=== PATIENT | female | born 1970 | race Caucasian/White ===

== ENCOUNTER 2022-01-02 07:07 | Outpatient (REF) | payer OTHER, SELFPAY ==
[2022-01-02 08:05] LABS: Anion Gap 11 (12-20); Blood Urea Nitrogen 15 mg/dL (9-16); C Reactive Protein 0.94 mg/dL (< or = 0.50); Carbon Dioxide 27 mmol/L (22-29); Chloride 105 mmol/L (96-108); Cholesterol 210 mg/dL; Estimated Glomerular Filt Rate > 60; Glucose Random 104 mg/dL (60-115); HDL Cholesterol 51 mg/dL; LDL Cholesterol Calculated 143 mg/dl; Potassium 4.3 mmol/L (3.3-5.1); Rheumatoid Factor < 15.0 IU/mL (<15.0); Sodium 139 mmol/L (135-145); Triglycerides 83 mg/dL
[2022-01-02 08:10] LABS: Reflex LDLD? No
[2022-01-02 08:31] LABS: Free T4 (Free Thyroxine) 1.13 ng/dL (0.71-1.85); Insulin 13 uU/mL (2-29); Thyroid Stimulating Hormone 2.13 uIU/mL (0.32-4.0)
[2022-01-02 08:33] LABS: Erythrocyte Sedimentation Rate 17 MM/HR (0-20)
[2022-01-04 13:53] LABS: Anti Nuclear Antibody Screen NEGATIVE (NEGATIVE)
== END 2022-01-02 07:08 | disposition home or self-care (01) ==
LOC: HO.LAB 07:07
PROVIDERS: PCP Internal Medicine; Visit Provider Internal Medicine
DX: E66.01 Morbid (severe) obesity due to excess calories (principal); M25.60 Stiffness of unspecified joint, not elsewhere classified
CPT/HCPCS: 36415; 80048; 80061; 83525; 84439; 84443; 85652; 86038; 86039; 86140; 86431

== ENCOUNTER 2023-01-26 06:25 | Outpatient (REF) | payer OTHER, SELFPAY ==
[2023-01-26 06:38] LABS: MANUAL DIFF FLAG NO
[2023-01-26 07:26] LABS: Basophils Absolute Auto 0.1 X10*3/uL (0.0-0.2); Basophils Percent Auto 1.1 % (0-2); Eosinophils Absolute Auto 0.3 X10*3/uL (0.0-0.4); Hematocrit 43.4 % (37.0-47.0); Hemoglobin 14.1 g/dl (12.0-16.0); Imm Gran Abs Auto 0.01 X10*3/uL (0.00-0.03); Imm Gran Pct Auto 0.2 % (0.0-0.4); Lymphocytes Absolute Auto 1.9 X10*3/uL (1.2-4.9); Lymphocytes Percent Auto 34.3 % (20-40); Mean Corpuscular HGB Conc 32.5 g/dl (31.0-35.0); Mean Corpuscular Hemoglobin 29.9 pg (27.0-33.0); Mean Corpuscular Volume 92.1 fL (80.0-98.0); Monocytes Absolute Auto 0.4 X10*3/uL (0.1-1.2); Neutrophils Absolute Auto 2.9 x10*3/uL (2.0-8.3); Neutrophils Percent Auto 51.4 % (45-73); Platelet Count 179 X10*3/uL (160-400); Red Blood Count 4.71 X10*6/uL (4.20-5.50); Red Cell Distribution Width 13.6 % (11.0-16.0); White Blood Count 5.5 X10*3/uL (4.8-10.8)
[2023-01-26 08:11] LABS: Alanine Aminotransferase 26 U/L (0-31); Alkaline Phosphatase 98 U/L (39-117); Anion Gap 13 (12-20); Aspartate Amino Transferase 23 U/L (5-31); Bilirubin Total 0.8 mg/dL (0.0-1.0); Blood Urea Nitrogen 22 mg/dL (9-16); Calcium 9.1 mg/dL (8.4-10.2); Carbon Dioxide 29 mmol/L (22-29); Chloride 107 mmol/L (96-108); Cholesterol 208 mg/dL; Estimated Glomerular Filt Rate > 60; Glucose Random 101 mg/dL (60-115); HDL Cholesterol 57 mg/dL; LDL Cholesterol Calculated 132 mg/dl; Potassium 4.5 mmol/L (3.3-5.1); Sodium 144 mmol/L (135-145); Triglycerides 97 mg/dL
[2023-01-26 08:13] LABS: ~Hepatitis C Antibody Reactive (Nonreactive)
== END 2023-01-26 06:26 | disposition home or self-care (01) ==
LOC: HO.LAB 06:25
PROVIDERS: PCP Nurse Practitioner Primary Care; Visit Provider Nurse Practitioner Primary Care
DX: E66.01 Morbid (severe) obesity due to excess calories (principal); Z11.59 Encounter for screening for other viral diseases
CPT/HCPCS: 36415; 80053; 80061; 85025; 86803

== ENCOUNTER 2023-05-25 10:23 | Outpatient (REF) | payer OTHER, SELFPAY | END 2023-05-25 10:24 | disposition home or self-care (01) | LOC: HO.SH 10:23 | PROVIDERS: Visit Provider Nurse Practitioner Primary Care | DX: H90.3 Sensorineural hearing loss, bilateral (principal) | CPT/HCPCS: 92557 ==

== ENCOUNTER 2023-10-10 15:58 | Outpatient (REF) | payer SELFPAY ==
--- NOTE | 2023-10-11 08:21 | MHC.AU.HA3 ---
Hearing Instrument Follow-Up- Binaural Date of Visit: 10/10/23 Right Ear: Stephan, Model, Color, Serial Number: Melida Koehler [id number] SN: [id number] Color: Nichole Enrique [employer] Warranty: 10/04/2026 [employer] Loss and Damage Warranty: 10/04/2026 [facility] Service Plan: 09/21/2024 Battery Size: Rechargeable Digital Pre Press Operator/Slim Tube: 0M [place]/Dome/CShell/SlimTip:Medium open dome (no retention tail) Type of Wax Guard: CeruShield Dispensed By: [facility] Date of Fittin09/21/2023 Left Ear: Stephan, Model, Color, Serial Number: Melida Koehler [id number] SN: [id number] Color: Nichole Beige [employer] Warranty: 10/04/2026 [employer] Loss and Damage Warranty: 10/04/2026 [facility] Service Plan: 09/21/2024 Battery Size: Rechargeable Digital Pre Press Operator/Slim Tube: 0M [place]old/Dome/CShell/SlimTip: Medium open dome (no retention tail) Type of Wax Guard: CeruShield Dispensed By: [facility] Date of Fittin09/21/2023 Follow-Up Summary: Chika reported she is noticing significant benefit from the hearing aids. One day, she forgot to put them in and she had to ask for repetition multiple times and her hearing difficulties were more apparent. Data logging showed ~11 hours of use per day. Her only complaint at this time was the physical fit of the hearing aids, particularly the left one. Her ears are itchy, the hearing aids reportedly work their way out of her ears, and her left ear often hurts. Upon inspection, the retention tails had curled over on themselves making it difficulty to fully insert the domes. Switched to medium open dome and removed retention tail. Chika noted improvement in comfort and security of fit in office. Provided extra medium domes. Chika will return the packages of small open domes. Chika did not feel an additional follow up was necessary at this time. Discussed 1-year [facility] Service Agreement and that any future visits after it expires will incur a [id number]. Chika opted to schedule a 6-month clean and check. However, she will call sooner if any issues arise. Recommendations: Hearing instrument maintenance in 6 months, or sooner if needed. Please contact our clinic with any questions or concerns. Diagnosis Code(s): Primary Diagnosis: H90.3 Bilateral Sensorineural Hearing Loss Signature: Provider: Dat Samaniego, CCC-A
== END 2023-10-10 15:59 | disposition home or self-care (01) ==
LOC: HO.HAP 15:58
PROVIDERS: Visit Provider Nurse Practitioner Primary Care
DX: Z13.89 Encounter for screening for other disorder (principal)

== ENCOUNTER 2023-10-19 07:57 | Outpatient (REF) | payer SELFPAY | END 2023-10-19 07:58 | disposition home or self-care (01) | LOC: HO.HAP 07:57 | PROVIDERS: Visit Provider Nurse Practitioner Primary Care | DX: Z13.89 Encounter for screening for other disorder (principal) ==

== ENCOUNTER 2023-11-01 08:49 | Outpatient (REF) | payer SELFPAY | END 2023-11-01 08:50 | disposition home or self-care (01) | LOC: HO.HAP 08:49 | PROVIDERS: Visit Provider Nurse Practitioner Primary Care | DX: Z13.89 Encounter for screening for other disorder (principal) ==

== ENCOUNTER 2024-04-15 12:56 | Outpatient (REF) | payer SELFPAY | END 2024-04-15 12:57 | disposition home or self-care (01) | LOC: HO.HAP 12:56 | PROVIDERS: Visit Provider Nurse Practitioner Primary Care | DX: Z13.89 Encounter for screening for other disorder (principal) ==